=== PATIENT | male | born 1940 | race Caucasian/White ===

== ENCOUNTER 2021-11-09 12:33 | Inpatient (IN) ==
[2021-11-09] MEDS ORDERED: Iopamidol - 370 500 ML MLS IVP ONE (13:12)
[2021-11-09 13:30] LABS: Basophils # 0.1 K/mcL (0.0-0.2); Basophils % 0.6 %; Eosinophils # 0.3 K/mcL (0.0-0.6); Eosinophils % 3.7 %; Hematocrit 43.6 % (37.5-50.1); Immature Granulocytes % 0.3 % (0-4); Lymphocytes % 25.1 %; Mean Corpuscular HGB Conc 32.1 g/dL (31.6-35.5); Mean Corpuscular Hemoglobin 31.7 pg (28.0-33.3); Mean Corpuscular Volume 98.9 fL (83.0-100.0); Mean Platelet Volume 9.8 fL (9.4-12.4); Monocytes # 0.9 K/mcL (0.0-1.3); Monocytes % 11.2 %; Neutrophils # 4.6 K/mcL (1.6-8.9); Platelet Count 276 K/mcL (140-400); Red Blood Count 4.41 M/mcL (4.19-5.50); Red Cell Distribution Width 13.5 % (11.5-14.5); Segmented Neutrophils % 59.1 %; White Blood Count 7.8 K/mcL (4.3-11.1)
[2021-11-09 13:37] LABS: INR 2.2; Prothrombin Time 23.9 Seconds (9.4-12.1)
[2021-11-09 13:45] LABS: BUN/Creatinine Ratio 12 (6-26); Blood Urea Nitrogen 13 mg/dL (8-23); Calcium 10.3 mg/dL (8.6-10.3); Carbon Dioxide 28 mEq/L (23-29); Chloride 103 mEq/L (98-107); Glucose 93 mg/dL (70-105); Osmolality,Calculated 284 (280-300); Potassium 4.4 mEq/L (3.5-5.1); Sodium 137 mEq/L (136-145); Troponin I < 0.03 ng/mL (< 0.04)
[2021-11-09] MEDS ORDERED: Ondansetron 4 MG/2 ML VIAL IVP PRN (15:55)
[2021-11-09] MEDS ORDERED: Naloxone 0.4 MG/ML INJ IVP PRN (15:55)
[2021-11-09] MEDS ORDERED: Nitroglycerin 0.4 MG TAB.SUBL SL PRN (15:59)
[2021-11-09] MEDS ORDERED: Aspirin Enteric Coated 325 MG Tablet PO ONE (17:01)
[2021-11-09] MEDS ORDERED: *HR* Warfarin 5 MG TABLET PO ONE (19:07)
[2021-11-09] MEDS: Warfarin perPT PO SCH (22:00)
[2021-11-09] MEDS: Furosemide 20 MG/2 ML VIAL IVP SCH (23:19)
[2021-11-10 02:39] LABS: Basophils # 0.1 K/mcL (0.0-0.2); Basophils % 0.8 %; Eosinophils # 0.3 K/mcL (0.0-0.6); Eosinophils % 4.2 %; Immature Granulocytes % 0.2 % (0-4); Lymphocytes # 1.4 K/mcL (0.6-4.6); Lymphocytes % 20.8 %; Mean Corpuscular HGB Conc 32.5 g/dL (31.6-35.5); Mean Corpuscular Hemoglobin 31.9 pg (28.0-33.3); Mean Platelet Volume 9.6 fL (9.4-12.4); Monocytes % 14.9 %; Neutrophils # 3.9 K/mcL (1.6-8.9); Platelet Count 247 K/mcL (140-400); Red Blood Count 4.08 M/mcL (4.19-5.50); Red Cell Distribution Width 13.6 % (11.5-14.5); Segmented Neutrophils % 59.1 %; White Blood Count 6.6 K/mcL (4.3-11.1)
[2021-11-10 02:49] LABS: INR 2.3; Prothrombin Time 25.3 Seconds (9.4-12.1)
[2021-11-10 03:06] LABS: Calcium 9.6 mg/dL (8.6-10.3); Chol/HDL Ratio 2.7 (0-4.9); Magnesium 2.3 mg/dL (1.6-2.6); Phosphorous 2.6 mg/dL (2.7-4.5); Potassium 4.1 mEq/L (3.5-5.1)
[2021-11-10] MEDS ORDERED: *HR* Enoxaparin 40 MG/0.4 ML SYRINGE SQ SCH (06:00)
[2021-11-10] MEDS ORDERED: Regadenoson 0.4 MG/5 ML SYRINGE IVP ONE (06:12)
[2021-11-10] MEDS: Loratadine 10 MG TABLET PO SCH (09:21)
[2021-11-10] MEDS: CarBAMazepine 100 MG TABLET PO SCH ×2 (09:21→20:01)
[2021-11-10] MEDS: Aspirin Enteric Coated 81 MG Tablet PO SCH (09:21)
[2021-11-10] MEDS: amLODIPine 5 MG TABLET PO SCH (09:21)
[2021-11-10] MEDS: Furosemide 20 MG/2 ML VIAL IVP SCH ×2 (09:23→20:01)
[2021-11-10] MEDS: Warfarin perPT PO SCH (17:03)
[2021-11-10] MEDS ORDERED: *HR* Warfarin 5 MG TABLET PO ONE (18:00)
[2021-11-10] MEDS: Primidone 50 MG TABLET PO SCH (20:02)
[2021-11-10] MEDS ORDERED: Ranolazine 500 MG TAB.ER.12H PO SCH (21:00)
[2021-11-11 02:16] LABS: INR 2.8
[2021-11-11] MEDS: Aspirin Enteric Coated 81 MG Tablet PO SCH (08:56)
[2021-11-11] MEDS: Loratadine 10 MG TABLET PO SCH (08:56)
[2021-11-11] MEDS: amLODIPine 5 MG TABLET PO SCH (08:56)
[2021-11-11] MEDS: CarBAMazepine 100 MG TABLET PO SCH ×2 (08:56→20:50)
[2021-11-11] MEDS: Furosemide 20 MG/2 ML VIAL IVP SCH ×2 (08:57→21:34)
[2021-11-11] MEDS ORDERED: *HR* Phytonadione 5 MG TABLET PO ONE (14:31)
[2021-11-11] MEDS: Metoprolol XL (24 HR) Succ 25 MG TAB.ER.24H PO SCH (15:29)
[2021-11-11] MEDS: Isosorbide MONOnitrate (24 HR) 30 MG TAB.ER.24H PO SCH (17:25)
[2021-11-11] MEDS: Primidone 50 MG TABLET PO SCH (20:52)
[2021-11-12 02:58] LABS: Basophils % 0.5 %; Eosinophils # 0.3 K/mcL (0.0-0.6); Eosinophils % 3.2 %; Hematocrit 40.1 % (37.5-50.1); Immature Granulocytes % 0.4 % (0-4); Lymphocytes # 1.6 K/mcL (0.6-4.6); Lymphocytes % 18.8 %; Mean Corpuscular HGB Conc 32.4 g/dL (31.6-35.5); Mean Corpuscular Hemoglobin 32.3 pg (28.0-33.3); Mean Corpuscular Volume 99.8 fL (83.0-100.0); Mean Platelet Volume 9.9 fL (9.4-12.4); Monocytes # 1.1 K/mcL (0.0-1.3); Neutrophils # 5.5 K/mcL (1.6-8.9); Platelet Count 257 K/mcL (140-400); Red Blood Count 4.02 M/mcL (4.19-5.50); Red Cell Distribution Width 13.6 % (11.5-14.5); Segmented Neutrophils % 64.1 %; White Blood Count 8.5 K/mcL (4.3-11.1)
[2021-11-12 03:03] LABS: Calcium 9.4 mg/dL (8.6-10.3)
[2021-11-12 08:32] LABS: Calcium 9.5 mg/dL (8.6-10.3)
[2021-11-12 08:45] LABS: INR 1.8; Prothrombin Time 20.4 Seconds (9.4-12.1)
[2021-11-12] MEDS: Loratadine 10 MG TABLET PO SCH (09:06)
[2021-11-12] MEDS: Metoprolol XL (24 HR) Succ 25 MG TAB.ER.24H PO SCH (09:06)
[2021-11-12] MEDS: amLODIPine 5 MG TABLET PO SCH (09:06)
[2021-11-12] MEDS: CarBAMazepine 100 MG TABLET PO SCH ×2 (09:06→21:09)
[2021-11-12] MEDS: Aspirin Enteric Coated 81 MG Tablet PO SCH (09:06)
[2021-11-12] MEDS: Isosorbide MONOnitrate (24 HR) 30 MG TAB.ER.24H PO SCH (09:06)
[2021-11-12] MEDS: Albumin 25% 25gram/100mL 25 GM/100 ML IV.SOLN IVPB SCH ×2 (09:08→17:12)
[2021-11-12] MEDS: 0.9 % Sodium Chloride 1,000 ML IVC SCH (10:32)
[2021-11-12] MEDS ORDERED: *HR* FentaNYL (PF) 100 MCG/2 ML VIAL ONE (11:25)
[2021-11-12] MEDS ORDERED: Iopamidol - 370 200 ML INFUS..BTL ONE (11:26)
[2021-11-12] MEDS ORDERED: Nitroglycerin 1,000 MCG/5 ML VIAL IV ONE (11:26)
[2021-11-12] MEDS ORDERED: Heparin 1,000 UNITS/500 mL 500 ML ONE (11:26)
[2021-11-12] MEDS ORDERED: *HR* Heparin 10,000 UNIT/10 ML VIAL ONE ×2 (11:26→11:57)
[2021-11-12] MEDS ORDERED: 0.9 % Sodium Chloride 1,000 ML ONE (11:26)
[2021-11-12] MEDS ORDERED: *HR* Midazolam HCl 2 MG/2 ML VIAL ONE (11:26)
[2021-11-12] MEDS: Primidone 50 MG TABLET PO SCH (21:08)
[2021-11-13] MEDS: Albumin 25% 25gram/100mL 25 GM/100 ML IV.SOLN IVPB SCH (00:47)
[2021-11-13] MEDS: 0.9 % Sodium Chloride 1,000 ML IVC SCH (02:02)
[2021-11-13 03:04] LABS: Basophils # 0.1 K/mcL (0.0-0.2); Basophils % 0.7 %; Eosinophils # 0.3 K/mcL (0.0-0.6); Eosinophils % 3.7 %; Hematocrit 35.9 % (37.5-50.1); Hemoglobin 11.7 g/dL (12.9-16.9); Immature Granulocytes % 0.1 % (0-4); Lymphocytes # 1.4 K/mcL (0.6-4.6); Lymphocytes % 19.6 %; Mean Corpuscular HGB Conc 32.6 g/dL (31.6-35.5); Mean Corpuscular Hemoglobin 32.1 pg (28.0-33.3); Mean Corpuscular Volume 98.4 fL (83.0-100.0); Mean Platelet Volume 9.8 fL (9.4-12.4); Monocytes # 0.9 K/mcL (0.0-1.3); Monocytes % 12.4 %; Neutrophils # 4.7 K/mcL (1.6-8.9); Platelet Count 223 K/mcL (140-400); Red Blood Count 3.65 M/mcL (4.19-5.50); Red Cell Distribution Width 13.6 % (11.5-14.5); Segmented Neutrophils % 63.5 %; White Blood Count 7.3 K/mcL (4.3-11.1)
[2021-11-13 03:16] LABS: INR 1.3; Prothrombin Time 14.6 Seconds (9.4-12.1)
[2021-11-13 03:26] LABS: Phosphorous 2.8 mg/dL (2.7-4.5); Potassium 3.8 mEq/L (3.5-5.1)
[2021-11-13] MEDS: amLODIPine 5 MG TABLET PO SCH (08:52)
[2021-11-13] MEDS: Metoprolol XL (24 HR) Succ 25 MG TAB.ER.24H PO SCH (08:52)
[2021-11-13] MEDS: Aspirin Enteric Coated 81 MG Tablet PO SCH (08:52)
[2021-11-13] MEDS: Loratadine 10 MG TABLET PO SCH (08:53)
[2021-11-13] MEDS: Isosorbide MONOnitrate (24 HR) 30 MG TAB.ER.24H PO SCH (08:53)
[2021-11-13] MEDS: CarBAMazepine 100 MG TABLET PO SCH (08:53)
[2021-11-13 10:27] VITALS: BP 124/63; PULSE 62; TEMP 97.6; O2SAT 94
[2021-11-13 10:55] LABS: Hematocrit 37.2 % (37.5-50.1); Hemoglobin 12.1 g/dL (12.9-16.9)
[2021-11-13] MEDS ORDERED: Warfarin perPT PO PRN (18:00)
[2021-11-13] MEDS ORDERED: *HR* Warfarin 7.5 MG TABLET PO ONE (18:00)
== END 2021-11-13 14:00 | disposition home or self-care (01) | DRG 247 ==
LOC: 3BNU 12:33 → EMEROOARM 12:33 → SUATTDRO 20:08 → 3BNU 11-10 00:53 → SUATTDRO 11-12 13:09
PROVIDERS: ADMIT Internal Medicine; ATTEND Internal Medicine